=== PATIENT | female | born 1965 | race Caucasian/White ===

== ENCOUNTER 2016-07-16 13:59 | Emergency (ER) | payer OTHER ==
[2016-07-16] MEDS ORDERED: DEXAMETHASONE 10 MG/ML VIAL PO STA (15:01)
[2016-07-16] MEDS ORDERED: IPRATROPIUM/ALBUTEROL 3 ML NEB INH STA (15:01)
[2016-07-16] MEDS ORDERED: CHERRY SYRUP 10 ML UDC PO ONE (15:13)
[2016-07-16] MEDS ORDERED: DEXAMETHASONE 10 MG/ML VIAL ONE (15:13)
[2016-07-16] MEDS ORDERED: IPRATROPIUM/ALBUTEROL 3 ML NEB INH ONE (15:16)
[2016-07-16] MEDS ORDERED: LORazepam 0.5 MG TABLET PO STA (15:38)
[2016-07-16] MEDS ORDERED: LORazepam 0.5 MG TABLET ONE (15:39)
== END 2016-07-16 16:30 | disposition home or self-care (01) ==
DX: J45.21 Mild intermittent asthma with (acute) exacerbation (principal); H66.003 Acute suppurative otitis media without spontaneous rupture of ear drum, bilateral; E11.9 Type 2 diabetes mellitus without complications; Z79.4 Long term (current) use of insulin; R94.5 Abnormal results of liver function studies
CPT/HCPCS: 36415; 71020; 80053; 83690; 84484; 85025; 85379; 93005; 93010; 94640; 94664; 99284; A9270; J7620

== ENCOUNTER 2020-05-12 08:26 | Day surgery (SDC) | payer OTHER ==
[2020-05-12] MEDS ORDERED: fentaNYL 100 MCG/2 ML VIAL IVP ONE (08:27)
[2020-05-12] MEDS ORDERED: ONDANSETRON 4 MG/2 ML VIAL IVP ONE (08:27)
[2020-05-12] MEDS ORDERED: fentaNYL 250 MCG/5 ML VIAL IVP ONE (08:27)
[2020-05-12] MEDS ORDERED: MIDAZOLAM 2 MG/2 ML VIAL IVP ONE (08:27)
[2020-05-12] MEDS ORDERED: LACTATED RINGERS 1,000 ML IV ONE ×2 (08:35→10:16)
--- NOTE | 2020-05-12 10:21 | ANESTHESIA ---
Pre-Anesthesia VS, & Labs - Diagnosis screening - Procedure Colonoscopy Vital Signs: Temp Pulse Resp BP Pulse Ox 36.2 C L 88 16 116/68 100 05/12/20 10:15 05/12/20 10:15 05/12/20 10:15 05/12/20 10:15 05/12/20 10:15 Height: 5 ft 5 in Weight (kg): 97.3 kg Body Mass Index: 35.6 BMI Classification: Obese - Is Patient ?: No Home Medications and Allergies Home Medications: Ambulatory Orders Aspirin [Aspirin EC] 1 DAILY 05/11/20 Atorvastatin [Lipitor] 1 DAILY PM 05/11/20 Insulin Glargine [Lantus Solostar] 60 DAILY PM 05/11/20 Methylphenidate HCl [Ritalin LA] 1 DAILY 05/11/20 Omeprazole 1 DAILY PM 05/11/20 Albuterol Sulfate [Proventil Hfa Inhaler] 2 puffs PO QID PRN 07/16/16 Alprazolam [Xanax] 2 mg PO DAILY 07/16/16 Citalopram [CeleXA] 40 mg PO DAILY 07/16/16 Levothyroxine Sodium 125 mcg PO DAILY 07/16/16 Modafinil [Provigil] 200 mg PO DAILY 07/16/16 lisinopriL [Lisinopril] 10 mg PO DAILY 07/16/16 Aspirin [Aspirin EC] 1 DAILY 05/11/20 Atorvastatin [Lipitor] 1 DAILY PM 05/11/20 Insulin Glargine [Lantus Solostar] 60 DAILY PM 05/11/20 Methylphenidate HCl [Ritalin LA] 1 DAILY 05/11/20 Omeprazole 1 DAILY PM 05/11/20 Allergies/Adverse Reactions: Allergies Allergy/AdvReac Type Severity Reaction Status Date / Time hydrocodone Allergy Unknown Verified 07/16/16 14:16 hydromorphone HCl * Allergy Nausea Verified 07/16/16 14:04 [From Dilaudid] Anes History & Medical History - Anesthetic History Anesthesia Complications: reports: No previous complications Family history of Anesthesia Complications: Denies Family history of Malignant Hyperthermia: Denies - Medical History Cardiovascular: reports: High cholesterol Pulmonary: reports: Asthma, Pneumonia Gastrointestinal: reports: Cholelithiasis, Other Urinary: Musculoskeletal: reports: None Endocrine/Autoimmune: reports: Type 2 diabetes, HyPOthyroidism Skin: reports: None Smoking Status: Never smoker - Surgical History General: Cholecystectomy, Appendectomy Eyes Ears Nose Throat (EENT): Tonsil/Adenoidectomy Urologic: Bladder surgery Gynecologic: Hysterectomy, Oophrectomy Orthopedic: Other Plan Anesthesia Type: MAC (Patient requiring more sedation than can be given as nurse monitoring. History obtained from surgeon and chart.) Consent for Procedure(s) Verified and Reviewed: Yes Code Status: Attempt Resuscitation ASA classification: 2-Mild systemic disease Is this case an emergency?: No
[2020-05-12 10:50] VITALS: BP 114/60
--- NOTE | 2020-05-12 11:02 | ANESTHESIA POST OP EVALUATION ---
Anesthesia Post Eval - Post Anesthesia Eval Vitals: Last Vital Signs Temp 36.2 C L 05/12/20 10:30 Pulse 76 05/12/20 10:45 Resp 12 05/12/20 10:45 BP 114/60 05/12/20 10:45 Pulse Ox 96 05/12/20 10:45 CV Function Including HR & BP: positive: Stable Pain Control: positive: Satisfactory Nausea & Vomiting: positive: Negative Mental Status: positive: Baseline Respiratory Status: Airway Patent Hydration Status: Satisfactory Anesthesia Complications: positive: None
== END 2020-05-12 08:27 | disposition home or self-care (01) ==
LOC: SDS 08:26
PROVIDERS: ATTEND Surgery
PROC: 0DJD8ZZ Inspection of Lower Intestinal Tract, Via Natural or Artificial Opening Endoscopic (ICD-10-PCS; principal; 2020-05-12 09:30)
DX: Z12.11 Encounter for screening for malignant neoplasm of colon (principal); K57.30 Diverticulosis of large intestine without perforation or abscess without bleeding; K92.89 Other specified diseases of the digestive system; E11.9 Type 2 diabetes mellitus without complications; J45.909 Unspecified asthma, uncomplicated; E03.9 Hypothyroidism, unspecified; E66.9 Obesity, unspecified; Z68.35 Body mass index [BMI] 35.0-35.9, adult; F32.9 Major depressive disorder, single episode, unspecified; G47.10 Hypersomnia, unspecified; K21.9 Gastro-esophageal reflux disease without esophagitis; H54.7 Unspecified visual loss; E78.00 Pure hypercholesterolemia, unspecified; Z87.01 Personal history of pneumonia (recurrent); Z79.82 Long term (current) use of aspirin; Z79.51 Long term (current) use of inhaled steroids; Z79.4 Long term (current) use of insulin; Z79.899 Other long term (current) drug therapy; Z98.84 Bariatric surgery status; Z87.891 Personal history of nicotine dependence

== ENCOUNTER 2021-11-29 08:00 | Outpatient (CLI) | payer OTHER ==
--- NOTE | 2021-11-29 10:58 | XRAY Report ---
PROCEDURE: Chest 2 View X-Ray INDICATIONS: SHORTNESS OF BREATH TECHNIQUE: 2 view(s) of the chest. COMPARISON: CXR 07/16/16 FINDINGS: Surgical changes and devices: None. Lungs and pleura: No pleural effusions or pneumothorax. Lungs are clear. Mediastinum: Mediastinal contours are normal. Heart size is normal. Bones and chest wall: No suspicious bony abnormalities. Soft tissues appear unremarkable. IMPRESSION: No acute pulmonary process. Reviewed by: Kristan Mares MD on 11/29/2021 10:57 AM PDT Approved by: Kristan Mares MD on 11/29/2021 10:57 AM PDT Station ID: [id number]
== END 2021-11-29 23:59 | disposition home or self-care (01) ==
LOC: DI.S 08:00
PROVIDERS: ATTEND Physician Assistant Medical
DX: R06.02 Shortness of breath (principal); R05.9 Cough, unspecified

== ENCOUNTER 2023-10-03 08:00 | Outpatient (CLI) | payer OTHER ==
--- NOTE | 2023-10-04 09:42 | XRAY Report ---
PROCEDURE: Chest 2V INDICATIONS: DYSPNEA TECHNIQUE: 2 views of the chest were acquired. COMPARISON: Chest radiograph on November 29, 2021 FINDINGS: Surgical changes and devices: None. Lungs and pleura: No pleural effusions or pneumothorax. Lungs are clear. Mediastinum: Mediastinal contours appear normal. Heart size is normal. Bones and chest wall: No suspicious bony lesions. Overlying soft tissues appear unremarkable. IMPRESSION: No acute cardiopulmonary process. Reviewed by: Glenroy Bob MD on 10/04/2023 9:41 AM PDT Approved by: Glenroy Bob MD on 10/04/2023 9:41 AM PDT Station ID: [id number]
== END 2023-10-03 23:59 | disposition home or self-care (01) ==
LOC: DI.S 08:00
PROVIDERS: ATTEND Internal Medicine
DX: R06.00 Dyspnea, unspecified (principal)